=== PATIENT | male | born 2000 | race Caucasian/White ===

== ENCOUNTER 2022-01-14 17:14 | Emergency (ER) | payer OTHER ==
[~2022-01-14] VITALS: Ht 170.2 cm; Wt 72.7 kg
[2022-01-14 19:17] VITALS: BP 124/69
[2022-01-14] MEDS ORDERED: NYST30CR9 TP (19:17)
[2022-01-14] MEDS ORDERED: FLUC150T61 PO ×2 (19:18→19:35)
[2022-01-14] MEDS ORDERED: NYST30OI6 TP (19:34)
== END 2022-01-14 19:34 | disposition home or self-care (01) ==
LOC: EMS 17:22
DX: B37.42 Candidal balanitis (principal)
CPT/HCPCS: 99281; Z7502